=== PATIENT | female | born 1995 | race Caucasian/White ===

== ENCOUNTER 2017-12-17 00:23 | Observation (INO) ==
[2017-12-17 00:52] LABS: Bilirubin,Urine Negative (Negative); Blood,Urine Negative (Negative); Clarity,Urine Clear (Clear); Color,Urine Yellow (Yellow); Glucose,Urine (UA) Normal (Normal); Ketones,Urine Negative (Negative); Leukocyte Esterase,Urine Trace (Negative); Nitrite,Urine Negative (Negative); PH,Urine 6.5 pH Units (5.0-8.0); Protein,Urine Negative (Neg-Trace); Specific Gravity,Urine 1.015 (1.010-1.025); Urobilinogen,Urine Normal (Normal)
[2017-12-17 00:57] LABS: Bacteria,Urine None Seen per hpf (None-Few); Hyaline Casts,Urine None Seen per lpf (None-Few); Squamous Epithelial Cell,Urine Moderate per lpf (None-Few); WBC,Urine 0-3 per hpf (0-3)
[2017-12-17 00:59] LABS: Amphetamine Screen,Urine Negative ng/mL (Cutoff=1000); Barbiturate Screen,Urine Negative ng/mL (Cutoff=200); Benzodiazepines Screen,Urine Negative ng/mL (Cutoff=200); Cannabinoid Screen,Urine Negative ng/mL (Cutoff = 50); Cocaine Screen,Urine Negative ng/mL (Cutoff= 300); Opiate Screen,Urine Negative ng/mL (Cutoff=300); Phencyclidine Screen,Urine Negative ng/mL (Cutoff=25)
[2017-12-17 01:04] LABS: Basophils % 0.3 %; Eosinophils % 0.5 %; Hematocrit 36.5 % (35.3-44.9); Hemoglobin 12.8 g/dL (11.5-15.4); Immature Granulocytes % 0.2 % (0-4); Lymphocytes # 2.6 K/mcL (0.6-4.6); Lymphocytes % 28.8 %; Mean Corpuscular HGB Conc 35.1 g/dL (31.6-35.5); Mean Corpuscular Hemoglobin 30.2 pg (28.0-33.3); Mean Corpuscular Volume 86.1 fL (83.0-100.0); Monocytes # 0.6 K/mcL (0.0-1.3); Neutrophils # 5.6 K/mcL (1.6-8.9); Platelet Count 273 K/mcL (140-400); Red Blood Count 4.24 M/mcL (3.82-4.97); Red Cell Distribution Width 12.2 % (11.5-14.5); Segmented Neutrophils % 63.2 %
[2017-12-17 01:23] LABS: Acetaminophen < 10 mcg/mL (10-20); BUN/Creatinine Ratio 9 (6-26); Blood Urea Nitrogen 6 mg/dL (6-20); Calcium 9.3 mg/dL (8.6-10.3); Carbon Dioxide 25 mEq/L (23-29); Chloride 105 mEq/L (98-107); Ethanol < 10 mg/dL (Less than 10); Glucose 95 mg/dL (70-105); Osmolality,Calculated 281 (280-300); Potassium 3.3 mEq/L (3.5-5.1); Salicylate < 2.5 mg/dL (15.0-30.0); Sodium 137 mEq/L (136-145); eGFR For African Americans > 60 (> 60); eGFR For Non-African Americans > 60 (> 60)
--- NOTE | 2017-12-17 02:03 | Emergency Department Note ---
Disposition Clinical Impression: Suicidal ideation Disposition: Admitted As Inpatient Condition: Undetermined Psych HPI - General Chief Complaint: ED Psychiatric Symptoms Stated Complaint: si Time Seen by Provider: 12/17/17 00:55 Source: patient Mode of arrival: private vehicle Limitations: no limitations Nursing Notes Reviewed: Yes Vital Signs Reviewed: Yes - History of Present Illness HPI Narrative: 22-year-old female presents emergency Department with her parents for evaluation having suicidal ideations. Patient states he lately she has been having any thoughts to end her life. She is a history of cutting and has started thinking that she would like to cut to the point of suicide. Patient states she had a bad day aware And at that point she decided that she did not want to live any longer. She denies recent illness, fever, chills, genitourinary complaints, Estratest all planes, difficulty breathing, chest pain. Pt complaint: suicidal ideation Onset (ago): hour(s) Duration: intermittent History of similar episodes: Yes Alleged intoxication: No Associated Psychiatric Symptoms: depression Associated symptoms: Reports: denies other symptoms Traumatic symptoms: denies traumatic injury Treatments prior to arrival: none Self harm or harm to others: admits thoughts of self harm, has plan - Related Data Home Medications Medication Instructions Recorded Confirmed Aripiprazole [Abilify] 15 mg PO DAILY 01/14/17 01/14/17 Norgestimate-Ethinyl Estradiol 1 tab PO DAILY 01/14/17 01/14/17 [Sprintec 28 Day Tablet] Sertraline [Zoloft] 200 mg PO DAILY 01/14/17 01/14/17 lamoTRIgine [Lamotrigine] 200 mg PO DAILY 01/14/17 01/14/17 Previous Rx's Medication Instructions Recorded Ibuprofen [Motrin] 600 mg PO Q6HR PRN #60 tab 01/14/17 Oxycodone HCl/Acetaminophen 1 each PO Q4-6H PRN #30 tablet 01/14/17 [Percocet 5-325 mg Tablet] Allergies Allergy/AdvReac Type Severity Reaction Status Date / Time No Known Allergies Allergy Verified 01/14/17 11:31 All systems ED: reviewed and negative except as stated. Review of Systems: As Per HPI Past Medical History - Past Medical History Attestation: Yes The following information was validated with the patient. Source: patient Medical history: Reports: non-contributory, other Psychiatric history: Reports: anxiety, depression - Social History Smoking Status: Never smoker Smokeless Tobacco Status: No Alcohol use: Reports: rarely Drug use: Reports: none Physical Exam - General Limitations: no limitations General appearance: alert, in no apparent distress - Head Head exam: atraumatic, normocephalic, normal inspection - Eye Eye exam: Present: normal appearance - Neck Neck exam: Present: normal inspection, full ROM, trachea midline - Chest Chest inspection: Present: normal inspection, symmetric chest wall rise - Respiratory Respiratory exam: Present: normal lung sounds bilaterally - Cardiovascular Cardiovascular exam: Present: regular rate, normal rhythm, normal heart sounds - Abdominal Exam Abdominal exam: Present: soft, Non-Tender. Absent: tenderness, distention, guarding, rebound, rigidity - Expanded Lower Extremity Exam Gait: observed and normal - Neurological Exam Neurological exam: Present: alert, oriented X3, CN II-XII intact - Psychiatric Psychiatric exam: Present: normal affect, normal mood - Skin Skin exam: Present: warm, dry, intact, normal color Course Course Narrative: 22-year-old female distress. Physical exam is benign. We will workup for psychological evaluation. All labs and UA have returned normal. Inpatient psychiatry has seen patient and deemed that she needs to be admitted for medicine management at this time. Per medical standpoint she is cleared and able to go to inpatient psychiatric Vital Signs Temperature 97.9 F 12/17/17 00:30 Pulse Rate 106 12/17/17 00:30 Respiratory Rate 16 12/17/17 00:30 Blood Pressure 131/75 12/17/17 00:30 O2 Sat by Pulse Oximetry 98 12/17/17 00:30 Temperature 97.9 F 12/17/17 00:30 Pulse Rate 106 12/17/17 00:30 Respiratory Rate 16 12/17/17 00:30 Blood Pressure 131/75 12/17/17 00:30 O2 Sat by Pulse Oximetry 98 12/17/17 00:30 Oxygen Delivery Oxygen Delivery Room Air Psych - Differential Diagnosis Likely: acute psychosis, chronic psychiatric disease, suicidal ideation, depression, acute anxiety state, panic disorder, associated medical condition. Unlikely: bipolar disorder, drug-induced psychotic disorder, hyperventilation - Medical Records Medical records reviewed: Yes I reviewed the patient's medical records. - Lab Data Lab results reviewed: Yes I reviewed the patient's lab results. Result diagrams: 12/17/17 00:53 12/17/17 00:53 Lab Results 12/17/17 12/17/17 12/17/17 Range/Units 00:38 00:38 00:38 WBC (4.3-11.1) K/mcL RBC (3.82-4.97) M/mcL Hgb (11.5-15.4) g/dL Hct (35.3-44.9) % MCV (83.0-100.0) fL MCH (28.0-33.3) pg MCHC (31.6-35.5) g/dL RDW (11.5-14.5) % Plt Count (140-400) K/mcL MPV (9.4-12.4) fL Immature Gran % (0-4) % Seg Neutrophils % % Lymphocytes % % Monocytes % % Eosinophils % % Basophils % % Neutrophils # (1.6-8.9) K/mcL Lymphocytes # (0.6-4.6) K/mcL Monocytes # (0.0-1.3) K/mcL Eosinophils # (0.0-0.6) K/mcL Basophils # (0.0-0.2) K/mcL Sodium (136-145) mEq/L Potassium (3.5-5.1) mEq/L Chloride (98-107) mEq/L Carbon Dioxide (23-29) mEq/L BUN (6-20) mg/dL Creatinine (0.60-1.20) mg/dL Est GFR ( Amer) (> 60) Est GFR (Non-Af Amer) (> 60) BUN/Creatinine Ratio (6-26) Glucose (70-105) mg/dL Calculated Osmolality (280-300) Calcium (8.6-10.3) mg/dL Urine Color Yellow (Yellow) Urine Clarity Clear (Clear) Urine pH 6.5 (5.0-8.0) pH Units Ur Specific [place] 1.015 (1.010-1.025) Urine Protein Negative (Neg-Trace) mg/dL Urine Glucose (UA) Normal (Normal) mg/dL Urine Ketones Negative (Negative) mg/dL Urine Blood Negative (Negative) Urine Nitrite Negative (Negative) Urine Bilirubin Negative (Negative) Urine Urobilinogen Normal (Normal) mg/dL Ur Leukocyte Esterase Trace H (Negative) Urine Microscopic RBC 3-5 H (0-3) per hpf Urine Microscopic WBC 0-3 (0-3) per hpf Ur Squamous Epith Cells Moderate H (None-Few) per lpf Urine Bacteria None Seen (None-Few) per hpf Hyaline Casts None Seen (None-Few) per lpf Urine Test Negative (Negative) Salicylates (15.0-30.0) mg/dL Urine Opiates Screen Negative (Qlkxvl=999) ng/mL Acetaminophen (10-20) mcg/mL Ur Barbiturates Screen Negative (Jczfba=598) ng/mL Ur Phencyclidine Scrn Negative (Cutoff=25) ng/mL Ur Amphetamines Screen Negative (Gjcajb=3741) ng/mL U Benzodiazepines Scrn Negative (Jbauwg=326) ng/mL Urine Cocaine Screen Negative (Cutoff= 300) ng/mL U Marijuana (THC) Screen Negative (Cutoff = 50) ng/mL Ethyl Alcohol (Less than 10) mg/dL 12/17/17 12/17/17 Range/Units 00:53 00:53 WBC 8.9 (4.3-11.1) K/mcL RBC 4.24 (3.82-4.97) M/mcL Hgb 12.8 (11.5-15.4) g/dL Hct 36.5 (35.3-44.9) % MCV 86.1 (83.0-100.0) fL MCH 30.2 (28.0-33.3) pg MCHC 35.1 (31.6-35.5) g/dL RDW 12.2 (11.5-14.5) % Plt Count 273 (140-400) K/mcL MPV 10.0 (9.4-12.4) fL Immature Gran % 0.2 (0-4) % Seg Neutrophils % 63.2 % Lymphocytes % 28.8 % Monocytes % 7.0 % Eosinophils % 0.5 % Basophils % 0.3 % Neutrophils # 5.6 (1.6-8.9) K/mcL Lymphocytes # 2.6 (0.6-4.6) K/mcL Monocytes # 0.6 (0.0-1.3) K/mcL Eosinophils # 0.0 (0.0-0.6) K/mcL Basophils # 0.0 (0.0-0.2) K/mcL Sodium 137 (136-145) mEq/L Potassium 3.3 L (3.5-5.1) mEq/L Chloride 105 (98-107) mEq/L Carbon Dioxide 25 (23-29) mEq/L BUN 6 (6-20) mg/dL Creatinine 0.69 (0.60-1.20) mg/dL Est GFR ( Amer) > 60 (> 60) Est GFR (Non-Af Amer) > 60 (> 60) BUN/Creatinine Ratio 9 (6-26) Glucose 95 (70-105) mg/dL Calculated Osmolality 281 (280-300) Calcium 9.3 (8.6-10.3) mg/dL Urine Color (Yellow) Urine Clarity (Clear) Urine pH (5.0-8.0) pH Units Ur Specific [place] (1.010-1.025) Urine Protein (Neg-Trace) mg/dL Urine Glucose (UA) (Normal) mg/dL Urine Ketones (Negative) mg/dL Urine Blood (Negative) Urine Nitrite (Negative) Urine Bilirubin (Negative) Urine Urobilinogen (Normal) mg/dL Ur Leukocyte Esterase (Negative) Urine Microscopic RBC (0-3) per hpf Urine Microscopic WBC (0-3) per hpf Ur Squamous Epith Cells (None-Few) per lpf Urine Bacteria (None-Few) per hpf Hyaline Casts (None-Few) per lpf Urine Test (Negative) Salicylates < 2.5 L (15.0-30.0) mg/dL Urine Opiates Screen (Qucngx=805) ng/mL Acetaminophen < 10 L (10-20) mcg/mL Ur Barbiturates Screen (Sstauj=330) ng/mL Ur Phencyclidine Scrn (Cutoff=25) ng/mL Ur Amphetamines Screen (Fxtswo=7130) ng/mL U Benzodiazepines Scrn (Rvpqij=796) ng/mL Urine Cocaine Screen (Cutoff= 300) ng/mL U Marijuana (THC) Screen (Cutoff = 50) ng/mL Ethyl Alcohol < 10 (Less than 10) mg/dL Psychiatric Medical Clearance - Medical Clearance Checklist Does the patient have a NEW psychiatric condition?: No Any abnormalities indicating possible medical illness?: No Any history of medical issues?: No Medical History: No Social History Section defined Any abnormal vital signs prior to transfer?: No Current Vitals: Last Vital Signs Temp 97.9 F 12/17/17 00:30 Pulse 106 05/24/18 00:30 Resp 16 12/17/17 00:30 BP 131/75 12/17/17 00:30 Pulse Ox 98 12/17/17 00:30 Is the patient intoxicated or cognitively impaired?: No Psychiatric Lab Panel: Drug Levels and Toxicity 12/17/17 12/17/17 00:38 00:53 Urine Opiates Screen Negative Acetaminophen < 10 L Ur Barbiturates Screen Negative Ur Phencyclidine Scrn Negative Ur Amphetamines Screen Negative U Benzodiazepines Scrn Negative Urine Cocaine Screen Negative U Marijuana (THC) Screen Negative Ethyl Alcohol < 10 Any abnormalities on the physical exam?: No Any abnormal labs?: No Abnormal Labs: Abnormal lab results Potassium 3.3 mEq/L (3.5-5.1) L 12/17/17 00:53 Ur Leukocyte Esterase Trace (Negative) H 12/17/17 00:38 Urine Microscopic RBC 3-5 per hpf (0-3) H 12/17/17 00:38 Ur Squamous Epith Cells Moderate per lpf (None-Few) H 12/17/17 00:38 Salicylates < 2.5 mg/dL (15.0-30.0) L 12/17/17 00:53 Acetaminophen < 10 mcg/mL (10-20) L 12/17/17 00:53 Does the patient require durable medical equiptment?: No Is the patient ambulatory?: Yes Is the patient a fall risk?: No Has the patient been medically cleared?: Yes Any acute medical condition require Tx prior to transfer?: No Statement of Medical Clearance: I have evaluated the patient, reviewed diagnostic information, and certify that the patient's medical condition is sufficiently stable that transfer to the psychiatric unit does not pose a significant risk of deterioration.
[2017-12-17] MEDS ORDERED: Acetaminophen 325 MG TABLET PO PRN (03:26)
[2017-12-17] MEDS ORDERED: *HR* LORazepam 2 MG/ML VIAL IM PRN (03:27)
[2017-12-17] MEDS ORDERED: *HR* LORazepam 1 MG TABLET PO PRN (03:28)
[2017-12-17] MEDS ORDERED: Haloperidol Lactate 5 MG/ML VIAL IM PRN (03:32)
[2017-12-17] MEDS ORDERED: MOM Conc 10 ML UD.LIQ PO PRN (03:50)
[2017-12-17] MEDS ORDERED: Mag Hydrox/Al Hydrox/Simeth 30 ML UDC PO PRN (03:52)
[2017-12-17] MEDS ORDERED: hydrOXYzine pamoate 25 MG CAPSULE PO PRN (03:59)
[2017-12-17] MEDS ORDERED: traZODone 50 MG TABLET PO PRN (04:02)
[2017-12-17] MEDS ORDERED: ARIPiprazole 10 MG TABLET PO SCH (09:00)
[2017-12-17 10:02] VITALS: BP 126/87
--- NOTE | 2017-12-17 12:09 | Discharge Summary ---
Date of Encounter: 12/17/17 Time of Encounter: 12:00 History of Present Illness Chief complaint: I was suicidal, boxcutters Admitted From: Home History of Present Illness: Ms. Paez is a 22 year old female The patient was minutes through the ER. She is a 22-year-old single white female. Chief complaint: I had a rough day at the job, I plan to cut myself with box cutters and bleed to . History of present illness:. The patient was able to complete some initial job training. 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 She began to have thoughts of cutting herself and bleeding to . The patient has a history of cutting but did not cut herself because the box cutters may have been contaminated. The patient returned home. The patient told her parents about the suicidal plans. The patient's parents brought her to the emergency room. She agreed to stay for observation. She reports no plan to kill herself now. She reports no plan to kill herself in the foreseeable future. The patient is currently followed at [facility]. She sees Zena Devi certified nurse practitioner. She sees a counselor named Amanda Buenrostro. The patient has been on Paxil and Abilify. They have treated her for bipolar disorder and social anxiety disorder. The patient is being treated with Abilify and Paxil. She is tolerating these medicines but is low on Paxil. The patient reports social anxiety problems she does not like speaking in public she does not like eating in public she does not like using public laboratories. She does not like being alone in the mall. The patient has previously had increased anxiety and quit jobs after 1 day. 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 Past medical history: Laparoscopic removal of ovarian cyst Illnesses: None Allergies NKDA For control she is using an IUD called Kylena Family history: The patient's mother has depression and anxiety. The patient's father has bipolar disorder and PTSD. The patient's father may have had a problem with alcohol. Her younger brother as problem with anger issues and older brother has a drug problem. There is no family history of suicide. Visual history. She has attended some college. She attended [employer] her niece she failed and dropped out. She resides in a double wide trailer. There are 8 people that live in the house. She does not drink alcohol other than socially. She does not abuse drugs. She does not smoke. In the residence are guns knives and a jigsaw. Review of systems is significant for wearing glasses the ovarian cyst for possible endometriosis. Past Med Surg Social Fam HX - Past Medical History Source: patient Medical history: non-contributory, other - Past Psychiatric History Psychiatric history: Reports: anxiety, bipolar Family psychiatric history: Yes Family History of Suicide: None - Past Surgical History Surgical History: other - Social History Smoking Status: Never smoker Smokeless Tobacco Status: No Alcohol use: rarely Drug use: none Occupational status: previously employed Current living situation: Home - Independent Activity Level: Independent ambulation Recent Out of Country Travel Within the Last 8 Weeks: No Exposure or Possible Exposure to Illness During Travel: No Medications - Discharge Medications Prescriptions: PARoxetine HCl [Paroxetine HCl] 40 mg PO DAILY 30 Days #30 tablet Aripiprazole [Abilify] 20 mg PO DAILY 12/17/17 [History] PARoxetine HCl [Paroxetine HCl] 40 mg PO DAILY 30 Days #30 tablet 12/17/17 [Rx] 3 Allergy/AdvReac Type Severity Reaction Status Date / Time No Known Allergies Allergy Verified 01/14/17 11:31 Review of Systems Constitutional: Denies: fever, chills, weakness, weight change Eyes: Reports: other. Denies: eye pain, vision change Ears, Nose, Throat: Denies: ear pain, throat pain, dental pain, hearing loss, congestion Cardiovascular: Denies: chest pain, palpitations, dyspnea on exertion Respiratory: Denies: cough, dyspnea, wheezes Gastrointestinal: Denies: abdominal pain, nausea, vomiting, diarrhea, constipation Genitourinary female: Denies: urgency, dysuria, frequency, abnormal menses, dyspareunia Musculoskeletal: Denies: joint swelling, joint pain Integumentary: Denies: rash, lesions, pruritus Neurological: Denies: headache, weakness, numbness, memory loss Psychiatric: Reports: anxiety Endocrine: Denies: fatigue, heat or cold intolerance Hematologic/Lymphatic: Denies: easy bruising, lymphadenopathy Allergic/Immunologic: Denies: urticaria, itchy eyes Exam - HEENT Head exam IM: Present: atraumatic Eye exam IM: Present: EOMI, normal appearance, PERRL ENT exam IM: Present: normal exam - Neurological Neurological exam: Present: CN II-XII intact - GI/Abdominal GI/Abdominal exam IM: Absent: tenderness - Extremities Extremities exam IM: Present: full ROM - Skin Skin exam IM: Present: dry, warm - Constitutional Vitals: Temp Pulse Resp BP Pulse Ox 98.5 F 94 20 126/87 98 12/17/17 09:00 12/17/17 09:00 12/17/17 09:00 12/17/17 09:00 12/17/17 00:30 General appearance: age & developmentally appropriate, well-groomed, well- nourished - Musculoskeletal Gait: normal Station: relaxed Strength & Tone: normal for patient - Psychiatric Patient Orientation: Yes Person, Yes Time, Yes Place Level of alertness: Alert Behavior: calm, cooperative Psychomotor activity: Normal Eye Contact: Maintains Eye Contact Mood Description: Anxious Affect description: congruent with mood, full range, anxious Speech Volume: Normal Speech pattern: normal rate, normal rhythm, normal tone, fluent, spontaneous Language & Vocabulary: consistent with education Thought Process: Linear, Goal Oriented Thought Content: No Suicidal ideation, No Homicidal ideation, No Overt delusions Perceptual Disturbances: No Auditory hallucinations, No Visual hallucinations Attention Span Ability: Capable of Focused Attention Memory Description: Grossly Intact Patient Reliability: Reliable Historian Fund of knowledge: Yes abstraction ability, Yes average, Yes aware of current events Intelligence Estimate: Average Judgment: Fair Insight: Partial Results - Labs Labs: Laboratory Last Values WBC 8.9 K/mcL (4.3-11.1) 12/17/17 00:53 RBC 4.24 M/mcL (3.82-4.97) 12/17/17 00:53 Hgb 12.8 g/dL (11.5-15.4) 12/17/17 00:53 Hct 36.5 % (35.3-44.9) 12/17/17 00:53 MCV 86.1 fL (83.0-100.0) 12/17/17 00:53 MCH 30.2 pg (28.0-33.3) 12/17/17 00:53 MCHC 35.1 g/dL (31.6-35.5) 12/17/17 00:53 RDW 12.2 % (11.5-14.5) 12/17/17 00:53 Plt Count 273 K/mcL (140-400) 12/17/17 00:53 MPV 10.0 fL (9.4-12.4) 12/17/17 00:53 Immature Gran % 0.2 % (0-4) 12/17/17 00:53 Seg Neutrophils % 63.2 % 12/17/17 00:53 Lymphocytes % 28.8 % 12/17/17 00:53 Monocytes % 7.0 % 12/17/17 00:53 Eosinophils % 0.5 % 12/17/17 00:53 Basophils % 0.3 % 12/17/17 00:53 Neutrophils # 5.6 K/mcL (1.6-8.9) 12/17/17 00:53 Lymphocytes # 2.6 K/mcL (0.6-4.6) 12/17/17 00:53 Monocytes # 0.6 K/mcL (0.0-1.3) 12/17/17 00:53 Eosinophils # 0.0 K/mcL (0.0-0.6) 12/17/17 00:53 Basophils # 0.0 K/mcL (0.0-0.2) 12/17/17 00:53 Sodium 137 mEq/L (136-145) 12/17/17 00:53 Potassium 3.3 mEq/L (3.5-5.1) L 12/17/17 00:53 Chloride 105 mEq/L (98-107) 12/17/17 00:53 Carbon Dioxide 25 mEq/L (23-29) 12/17/17 00:53 BUN 6 mg/dL (6-20) 12/17/17 00:53 Creatinine 0.69 mg/dL (0.60-1.20) 12/17/17 00:53 Est GFR ( Amer) > 60 (> 60) 12/17/17 00:53 Est GFR (Non-Af Amer) > 60 (> 60) 12/17/17 00:53 BUN/Creatinine Ratio 9 (6-26) 12/17/17 00:53 Glucose 95 mg/dL (70-105) 12/17/17 00:53 Calculated Osmolality 281 (280-300) 12/17/17 00:53 Calcium 9.3 mg/dL (8.6-10.3) 12/17/17 00:53 Urine Color Yellow (Yellow) 12/17/17 00:38 Urine Clarity Clear (Clear) 12/17/17 00:38 Urine pH 6.5 pH Units (5.0-8.0) 12/17/17 00:38 Ur Specific [place] 1.015 (1.010-1.025) 12/17/17 00:38 Urine Protein Negative mg/dL (Neg-Trace) 12/17/17 00:38 Urine Glucose (UA) Normal mg/dL (Normal) 12/17/17 00:38 Urine Ketones Negative mg/dL (Negative) 12/17/17 00:38 Urine Blood Negative (Negative) 12/17/17 00: Urine Nitrite Negative (Negative) 12/17/17 00:38 Urine Bilirubin Negative (Negative) 12/17/17 00:38 Urine Urobilinogen Normal mg/dL (Normal) 12/17/17 00:38 Ur Leukocyte Esterase Trace (Negative) H 12/17/17 00:38 Urine Microscopic RBC 3-5 per hpf (0-3) H 12/17/17 00:38 Urine Microscopic WBC 0-3 per hpf (0-3) 12/17/17 00:38 Ur Squamous Epith Cells Moderate per lpf (None-Few) H 12/17/17 00:38 Urine Bacteria None Seen per hpf (None-Few) 12/17/17 00:38 Hyaline Casts None Seen per lpf (None-Few) 12/17/17 00:38 Urine Test Negative (Negative) 12/17/17 00:38 Salicylates < 2.5 mg/dL (15.0-30.0) L 12/17/17 00:53 Urine Opiates Screen Negative ng/mL (Kpfbuc=822) 12/17/17 00:38 Acetaminophen < 10 mcg/mL (10-20) L 12/17/17 00:53 Ur Barbiturates Screen Negative ng/mL (Wkznhj=323) 12/17/17 00:38 Ur Phencyclidine Scrn Negative ng/mL (Cutoff=25) 12/17/17 00:38 Ur Amphetamines Screen Negative ng/mL (Uttryo=6206) 12/17/17 00: U Benzodiazepines Scrn Negative ng/mL (Uevwpe=677) 12/17/17 00:38 Urine Cocaine Screen Negative ng/mL (Cutoff= 300) 12/17/17 00:38 U Marijuana (THC) Screen Negative ng/mL (Cutoff = 50) 12/17/17 00:38 Ethyl Alcohol < 10 mg/dL (Less than 10) 12/17/17 00:53 Diagnosis - Discharge Diagnosis (1) Bipolar disorder, current episode depressed, mild Status: Acute (2) Social anxiety disorder Status: Acute (3) Suicidal ideation Status: Resolved Assessment and Plan - Patient/Caregiver Discharge Instructions Activity: resume usual activities as tolerated Diet: regular diet - Follow up Plan Follow up with: [facility] [Outside] - 12/22/17 11:00 am (The above appointment is with Amanda for outpatient mental health counseling services. You will also see Zena Devi for outpatient psychiatric assessment and medication management services on 12/23/2017 at 9:30am.) Functional capacity at discharge: independent ambulation Overall status at discharge: Stable Disposition: Home, Self-Care Provider Date of admission: 12/17/17 03:16 Primary care physician: PCP NONE Hospital Course Hospital course: Ms. Paez is a 22 year old female - Time Spent with Patient Total time spent providing and/or coordinating discharge services: Quality - Multiple Antipsychotics Patient discharged on 2 or more antipsychotic medications: No
== END 2017-12-17 17:25 | disposition home or self-care (01) ==
LOC: EMEROO 00:23 → 1ANU 00:23
PROVIDERS: ADMIT Psychiatry & Neurology Forensic Psychiatry; ATTEND Psychiatry & Neurology Forensic Psychiatry

== ENCOUNTER 2018-04-28 23:34 | Inpatient (IN) ==
--- NOTE | 2018-04-29 00:28 | Emergency Department Note ---
Disposition Clinical Impression: Suicidal ideation, Medical clearance for psychiatric admission Disposition: Admitted As Inpatient Condition: Undetermined Time of Disposition: 02:06 Psych HPI - General Chief Complaint: ED Psychiatric Symptoms Stated Complaint: suicidal Time Seen by Provider: 04/28/18 23:37 Source: patient, family Mode of arrival: ambulatory Limitations: no limitations Nursing Notes Reviewed: Yes Vital Signs Reviewed: Yes - History of Present Illness HPI Narrative: 22-year-old female with history of previous suicidal ideations, attempts, previous psychiatric admissions here at [facility] arrives to the emergency department after experiencing suicidal ideation with an attempt today. The patient states she was cutting her left upper extremity. The patient states she has a plan to cut her left upper extremity to deep and bleed out. The patient states that this is similar to previous suicidal ideation. She denies any other complaints at this time. She is resting comfortably in the room. The patient does have a mildly flat affect on examination. She denies any chest pain, difficulty breathing, fevers, chills. She denies any alcohol or drug use. - Related Data Home Medications Medication Instructions Recorded Confirmed Aripiprazole [Abilify] 20 mg PO DAILY 12/17/17 12/17/17 Propranolol 02/17/18 Previous Rx's Medication Instructions Recorded PARoxetine HCl [Paroxetine HCl] 40 mg PO DAILY 30 Days #30 tablet 12/17/17 Mupirocin [Bactroban Oint] 1 appl TP BID #1 tube 02/17/18 Sulfamethoxazole/Trimeth DS 1 each PO BID #20 tablet 02/17/18 [Bactrim DS] Allergies Allergy/AdvReac Type Severity Reaction Status Date / Time No Known Allergies Allergy Verified 01/14/17 11:31 All systems ED: reviewed and negative except as stated. Constitutional: Denies: fever, chills, weakness Cardiovascular: Denies: chest pain Respiratory: Denies: dyspnea Gastrointestinal: Denies: abdominal pain Genitourinary: Denies: urgency, dysuria Musculoskeletal: Denies: back pain Integumentary: Reports: abrasion. Denies: rash Neurological: Denies: headache Psychiatric: Reports: depression, suicidal thoughts. Denies: homicidal thoughts Past Medical History - Past Medical History Attestation: Yes The following information was validated with the patient. Source: patient, old records reviewed Medical history: Reports: non-contributory, other Surgical history: Reports: other Psychiatric history: Reports: anxiety, bipolar, depression, prior suicide attempt, previous psychiatric hospitalization - Social History Smoking Status: Never smoker Smokeless Tobacco Status: No Alcohol use: Reports: none Drug use: Reports: none Physical Exam - General Limitations: no limitations General appearance: alert, in no apparent distress - Head Head exam: atraumatic, normocephalic, normal inspection - Eye Eye exam: Present: normal appearance, PERRL, EOMI - ENT ENT exam: normal exam, normal oropharynx, mucous membranes moist - Neck Neck exam: Present: normal inspection, full ROM, trachea midline - Chest Chest inspection: Present: normal inspection, symmetric chest wall rise - Respiratory Respiratory exam: Present: normal lung sounds bilaterally - Cardiovascular Cardiovascular exam: Present: regular rate, normal rhythm, normal heart sounds - Abdominal Exam Abdominal exam: Present: soft, Non-Tender. Absent: tenderness, distention, guarding, rebound, rigidity - Extremities Exam Extremities exam: Present: normal inspection, full ROM. Absent: tenderness, pedal edema - Neurological Exam Neurological exam: Present: alert, oriented X3 - Skin Skin exam: Present: warm, dry, normal color, other (Patient has large amount of superficial lacerations to left wrist and forearm consistent with patient's self cutting. No signs of infection. No active bleeding. No need for repair of wounds.) Course - Reevaluation(s) Reevaluation #1: Patient medically clear. Patient will be seen by 1A. Time: 01:11 Vital Signs Temperature 98.6 F 04/28/18 23:37 Pulse Rate 98 04/28/18 23:37 Respiratory Rate 12 04/28/18 23:37 Blood Pressure 116/76 04/28/18 23:37 O2 Sat by Pulse Oximetry 98 04/28/18 23:37 Temperature 98.6 F 04/28/18 23:37 Pulse Rate 98 04/28/18 23:37 Respiratory Rate 12 04/28/18 23:37 Blood Pressure 116/76 04/28/18 23:37 O2 Sat by Pulse Oximetry 98 04/28/18 23:37 Oxygen Delivery Oxygen Delivery Room Air Psych - MDM Narrative Medical decision making narrative: Patient was medically clear. Given the patient's suicidal ideation. The patient will be admitted to [facility] for further workup and care. The patient has a pink slip at this time. Is signed and on the patient's chart. - Lab Data Result diagrams: 04/29/18 00:32 04/29/18 00:32 Lab Results 04/29/18 04/29/18 04/29/18 Range/Units 00:25 00:25 00:25 WBC (4.3-11.1) K/mcL RBC (3.82-4.97) M/mcL Hgb (11.5-15.4) g/dL Hct (35.3-44.9) % MCV (83.0-100.0) fL MCH (28.0-33.3) pg MCHC (31.6-35.5) g/dL RDW (11.5-14.5) % Plt Count (140-400) K/mcL MPV (9.4-12.4) fL Immature Gran % (0-4) % Seg Neutrophils % % Lymphocytes % % Monocytes % % Eosinophils % % Basophils % % Neutrophils # (1.6-8.9) K/mcL Lymphocytes # (0.6-4.6) K/mcL Monocytes # (0.0-1.3) K/mcL Eosinophils # (0.0-0.6) K/mcL Basophils # (0.0-0.2) K/mcL Sodium (136-145) mEq/L Potassium (3.5-5.1) mEq/L Chloride (98-107) mEq/L Carbon Dioxide (23-29) mEq/L BUN (6-20) mg/dL Creatinine (0.60-1.20) mg/dL Est GFR ( Amer) (> 60) Est GFR (Non-Af Amer) (> 60) BUN/Creatinine Ratio (6-26) Glucose (70-105) mg/dL Calculated Osmolality (280-300) Calcium (8.6-10.3) mg/dL Urine Color Yellow (Yellow) Urine Clarity Clear (Clear) Urine pH 5.5 (5.0-8.0) pH Units Ur Specific [place] 1.015 (1.010-1.025) Urine Protein Negative (Neg-Trace) mg/dL Urine Glucose (UA) Normal (Normal) mg/dL Urine Ketones Negative (Negative) mg/dL Urine Blood Negative (Negative) Urine Nitrite Negative (Negative) Urine Bilirubin Negative (Negative) Urine Urobilinogen Normal (Normal) mg/dL Ur Leukocyte Esterase Negative (Negative) Urine Test Negative (Negative) Salicylates (15.0-30.0) mg/dL Urine Opiates Screen Negative (Itzuhg=654) ng/mL Acetaminophen (10-20) mcg/mL Ur Barbiturates Screen Negative (Ruwfvr=673) ng/mL Ur Phencyclidine Scrn Negative (Cutoff=25) ng/mL Ur Amphetamines Screen Negative (Jrapkl=6517) ng/mL U Benzodiazepines Scrn Negative (Sbsibp=661) ng/mL Urine Cocaine Screen Negative (Cutoff= 300) ng/mL U Marijuana (THC) Screen Negative (Cutoff = 50) ng/mL Ur Drug Screen Interp See Below Ethyl Alcohol (Less than 10) mg/dL 04/29/18 04/29/18 Range/Units 00:32 00:32 WBC 8.4 (4.3-11.1) K/mcL RBC 4.25 (3.82-4.97) M/mcL Hgb 13.0 (11.5-15.4) g/dL Hct 38.0 (35.3-44.9) % MCV 89.4 (83.0-100.0) fL MCH 30.6 (28.0-33.3) pg MCHC 34.2 (31.6-35.5) g/dL RDW 12.0 (11.5-14.5) % Plt Count 301 (140-400) K/mcL MPV 10.7 (9.4-12.4) fL Immature Gran % 0.2 (0-4) % Seg Neutrophils % 65.3 % Lymphocytes % 27.2 % Monocytes % 5.7 % Eosinophils % 1.1 % Basophils % 0.5 % Neutrophils # 5.5 (1.6-8.9) K/mcL Lymphocytes # 2.3 (0.6-4.6) K/mcL Monocytes # 0.5 (0.0-1.3) K/mcL Eosinophils # 0.1 (0.0-0.6) K/mcL Basophils # 0.0 (0.0-0.2) K/mcL Sodium 139 (136-145) mEq/L Potassium 3.8 (3.5-5.1) mEq/L Chloride 109 H (98-107) mEq/L Carbon Dioxide 20 L (23-29) mEq/L BUN 6 (6-20) mg/dL Creatinine 0.68 (0.60-1.20) mg/dL Est GFR ( Amer) > 60 (> 60) Est GFR (Non-Af Amer) > 60 (> 60) BUN/Creatinine Ratio 9 (6-26) Glucose 100 (70-105) mg/dL Calculated Osmolality 286 (280-300) Calcium 9.1 (8.6-10.3) mg/dL Urine Color (Yellow) Urine Clarity (Clear) Urine pH (5.0-8.0) pH Units Ur Specific [place] (1.010-1.025) Urine Protein (Neg-Trace) mg/dL Urine Glucose (UA) (Normal) mg/dL Urine Ketones (Negative) mg/dL Urine Blood (Negative) Urine Nitrite (Negative) Urine Bilirubin (Negative) Urine Urobilinogen (Normal) mg/dL Ur Leukocyte Esterase (Negative) Urine Test (Negative) Salicylates < 2.5 L (15.0-30.0) mg/dL Urine Opiates Screen (Flqnei=241) ng/mL Acetaminophen < 10 L (10-20) mcg/mL Ur Barbiturates Screen (Ntumzm=240) ng/mL Ur Phencyclidine Scrn (Cutoff=25) ng/mL Ur Amphetamines Screen (Vdvcmh=7564) ng/mL U Benzodiazepines Scrn (Gnnivn=543) ng/mL Urine Cocaine Screen (Cutoff= 300) ng/mL U Marijuana (THC) Screen (Cutoff = 50) ng/mL Ur Drug Screen Interp Ethyl Alcohol < 10 (Less than 10) mg/dL Psychiatric Medical Clearance - Medical Clearance Checklist Medical History: No Social History Section defined Current Vitals: Last Vital Signs Temp 98.6 F 04/28/18 23:37 Pulse 98 04/28/18 23:37 Resp 12 04/28/18 23:37 BP 116/76 04/28/18 23:37 Pulse Ox 98 04/28/18 23:37 Psychiatric Lab Panel: Drug Levels and Toxicity 04/29/18 04/29/18 00:25 00:32 Urine Opiates Screen Negative Acetaminophen < 10 L Ur Barbiturates Screen Negative Ur Phencyclidine Scrn Negative Ur Amphetamines Screen Negative U Benzodiazepines Scrn Negative Urine Cocaine Screen Negative U Marijuana (THC) Screen Negative Ethyl Alcohol < 10 Abnormal Labs: Abnormal lab results Chloride 109 mEq/L (98-107) H 04/29/18 00:32 Carbon Dioxide 20 mEq/L (23-29) L 04/29/18 00:32 Salicylates < 2.5 mg/dL (15.0-30.0) L 04/29/18 00:32 Acetaminophen < 10 mcg/mL (10-20) L 04/29/18 00:32
[2018-04-29] MEDS ORDERED: Tdap (Boostrix) Vaccine 0.5 ML SYRINGE IM ONE (00:30)
[2018-04-29 00:42] LABS: Basophils % 0.5 %; Eosinophils # 0.1 K/mcL (0.0-0.6); Eosinophils % 1.1 %; Immature Granulocytes % 0.2 % (0-4); Lymphocytes # 2.3 K/mcL (0.6-4.6); Lymphocytes % 27.2 %; Mean Corpuscular HGB Conc 34.2 g/dL (31.6-35.5); Mean Corpuscular Hemoglobin 30.6 pg (28.0-33.3); Mean Corpuscular Volume 89.4 fL (83.0-100.0); Mean Platelet Volume 10.7 fL (9.4-12.4); Monocytes # 0.5 K/mcL (0.0-1.3); Monocytes % 5.7 %; Neutrophils # 5.5 K/mcL (1.6-8.9); Platelet Count 301 K/mcL (140-400); Red Blood Count 4.25 M/mcL (3.82-4.97); Segmented Neutrophils % 65.3 %
[2018-04-29 00:43] LABS: Bilirubin,Urine Negative (Negative); Blood,Urine Negative (Negative); Clarity,Urine Clear (Clear); Color,Urine Yellow (Yellow); Glucose,Urine (UA) Normal (Normal); Ketones,Urine Negative (Negative); Leukocyte Esterase,Urine Negative (Negative); Nitrite,Urine Negative (Negative); PH,Urine 5.5 pH Units (5.0-8.0); Protein,Urine Negative (Neg-Trace); Specific Gravity,Urine 1.015 (1.010-1.025); Urobilinogen,Urine Normal (Normal)
[2018-04-29 00:52] LABS: Amphetamine Screen,Urine Negative ng/mL (Cutoff=1000); Barbiturate Screen,Urine Negative ng/mL (Cutoff=200); Benzodiazepines Screen,Urine Negative ng/mL (Cutoff=200); Cannabinoid Screen,Urine Negative ng/mL (Cutoff = 50); Cocaine Screen,Urine Negative ng/mL (Cutoff= 300); Opiate Screen,Urine Negative ng/mL (Cutoff=300); Phencyclidine Screen,Urine Negative ng/mL (Cutoff=25)
[2018-04-29 01:02] LABS: Acetaminophen < 10 mcg/mL (10-20); BUN/Creatinine Ratio 9 (6-26); Blood Urea Nitrogen 6 mg/dL (6-20); Calcium 9.1 mg/dL (8.6-10.3); Carbon Dioxide 20 mEq/L (23-29); Chloride 109 mEq/L (98-107); Ethanol < 10 mg/dL (Less than 10); Glucose 100 mg/dL (70-105); Osmolality,Calculated 286 (280-300); Potassium 3.8 mEq/L (3.5-5.1); Salicylate < 2.5 mg/dL (15.0-30.0); Sodium 139 mEq/L (136-145); eGFR For Non-African Americans > 60 (> 60)
--- NOTE | 2018-04-29 01:11 | Emergency Department Note ---
Disposition Clinical Impression: Suicidal ideation Disposition: Admitted As Inpatient Referrals: Joyce Mccall DO [Primary Care Provider] - Forms: ED Satisfaction Letter Time of Disposition: 02:07 General Adult HPI - General Chief complaint: ED Psychiatric Symptoms Stated complaint: suicidal Time Seen by Provider: 04/28/18 23:37 Source: patient, family Mode of arrival: ambulatory Limitations: no limitations - History of Present Illness Pain Scale: 3 - Related Data Home Medications Medication Instructions Recorded Confirmed Aripiprazole [Abilify] 20 mg PO DAILY 12/17/17 12/17/17 Propranolol 02/17/18 Previous Rx's Medication Instructions Recorded PARoxetine HCl [Paroxetine HCl] 40 mg PO DAILY 30 Days #30 tablet 12/17/17 Mupirocin [Bactroban Oint] 1 appl TP BID #1 tube 02/17/18 Sulfamethoxazole/Trimeth DS 1 each PO BID #20 tablet 02/17/18 [Bactrim DS] Allergies Allergy/AdvReac Type Severity Reaction Status Date / Time No Known Allergies Allergy Verified 01/14/17 11:31 Constitutional: Denies: fever, chills, weakness Cardiovascular: Denies: chest pain Respiratory: Denies: dyspnea Gastrointestinal: Denies: abdominal pain Genitourinary: Denies: urgency, dysuria Musculoskeletal: Denies: back pain Integumentary: Reports: abrasion. Denies: rash Neurological: Denies: headache Psychiatric: Reports: depression, suicidal thoughts. Denies: homicidal thoughts Past Medical History - Past Medical History Medical history: Reports: non-contributory, other Surgical history: Reports: other Psychiatric history: Reports: anxiety, bipolar, depression, prior suicide attempt, previous psychiatric hospitalization - Social History Smoking Status: Never smoker Smokeless Tobacco Status: No Alcohol use: Reports: none Drug use: Reports: none Physical Exam - General Limitations: no limitations General appearance: alert, in no apparent distress Course Vital Signs Temperature 98.6 F 04/28/18 23:37 Pulse Rate 98 04/28/18 23:37 Respiratory Rate 12 04/28/18 23:37 Blood Pressure 116/76 04/28/18 23:37 O2 Sat by Pulse Oximetry 98 04/28/18 23:37 Temperature 98.6 F 04/28/18 23:37 Pulse Rate 98 04/28/18 23:37 Respiratory Rate 12 04/28/18 23:37 Blood Pressure 116/76 04/28/18 23:37 O2 Sat by Pulse Oximetry 98 04/28/18 23:37 Oxygen Delivery Oxygen Delivery Room Air Medical Decision Making - Lab Data Result diagrams: 04/29/18 00:32 04/29/18 00:32 Lab Results 04/29/18 04/29/18 04/29/18 Range/Units 00:25 00:25 00:25 WBC (4.3-11.1) K/mcL RBC (3.82-4.97) M/mcL Hgb (11.5-15.4) g/dL Hct (35.3-44.9) % MCV (83.0-100.0) fL MCH (28.0-33.3) pg MCHC (31.6-35.5) g/dL RDW (11.5-14.5) % Plt Count (140-400) K/mcL MPV (9.4-12.4) fL Immature Gran % (0-4) % Seg Neutrophils % % Lymphocytes % % Monocytes % % Eosinophils % % Basophils % % Neutrophils # (1.6-8.9) K/mcL Lymphocytes # (0.6-4.6) K/mcL Monocytes # (0.0-1.3) K/mcL Eosinophils # (0.0-0.6) K/mcL Basophils # (0.0-0.2) K/mcL Sodium (136-145) mEq/L Potassium (3.5-5.1) mEq/L Chloride (98-107) mEq/L Carbon Dioxide (23-29) mEq/L BUN (6-20) mg/dL Creatinine (0.60-1.20) mg/dL Est GFR ( Amer) (> 60) Est GFR (Non-Af Amer) (> 60) BUN/Creatinine Ratio (6-26) Glucose (70-105) mg/dL Calculated Osmolality (280-300) Calcium (8.6-10.3) mg/dL Urine Color Yellow (Yellow) Urine Clarity Clear (Clear) Urine pH 5.5 (5.0-8.0) pH Units Ur Specific [place] 1.015 (1.010-1.025) Urine Protein Negative (Neg-Trace) mg/dL Urine Glucose (UA) Normal (Normal) mg/dL Urine Ketones Negative (Negative) mg/dL Urine Blood Negative (Negative) Urine Nitrite Negative (Negative) Urine Bilirubin Negative (Negative) Urine Urobilinogen Normal (Normal) mg/dL Ur Leukocyte Esterase Negative (Negative) Urine Test Negative (Negative) Salicylates (15.0-30.0) mg/dL Urine Opiates Screen Negative (Kjpxaf=431) ng/mL Acetaminophen (10-20) mcg/mL Ur Barbiturates Screen Negative (Qmebog=808) ng/mL Ur Phencyclidine Scrn Negative (Cutoff=25) ng/mL Ur Amphetamines Screen Negative (Mwjvep=2903) ng/mL U Benzodiazepines Scrn Negative (Ujoftu=595) ng/mL Urine Cocaine Screen Negative (Cutoff= 300) ng/mL U Marijuana (THC) Screen Negative (Cutoff = 50) ng/mL Ur Drug Screen Interp See Below Ethyl Alcohol (Less than 10) mg/dL 04/29/18 04/29/18 Range/Units 00:32 00:32 WBC 8.4 (4.3-11.1) K/mcL RBC 4.25 (3.82-4.97) M/mcL Hgb 13.0 (11.5-15.4) g/dL Hct 38.0 (35.3-44.9) % MCV 89.4 (83.0-100.0) fL MCH 30.6 (28.0-33.3) pg MCHC 34.2 (31.6-35.5) g/dL RDW 12.0 (11.5-14.5) % Plt Count 301 (140-400) K/mcL MPV 10.7 (9.4-12.4) fL Immature Gran % 0.2 (0-4) % Seg Neutrophils % 65.3 % Lymphocytes % 27.2 % Monocytes % 5.7 % Eosinophils % 1.1 % Basophils % 0.5 % Neutrophils # 5.5 (1.6-8.9) K/mcL Lymphocytes # 2.3 (0.6-4.6) K/mcL Monocytes # 0.5 (0.0-1.3) K/mcL Eosinophils # 0.1 (0.0-0.6) K/mcL Basophils # 0.0 (0.0-0.2) K/mcL Sodium 139 (136-145) mEq/L Potassium 3.8 (3.5-5.1) mEq/L Chloride 109 H (98-107) mEq/L Carbon Dioxide 20 L (23-29) mEq/L BUN 6 (6-20) mg/dL Creatinine 0.68 (0.60-1.20) mg/dL Est GFR ( Amer) > 60 (> 60) Est GFR (Non-Af Amer) > 60 (> 60) BUN/Creatinine Ratio 9 (6-26) Glucose 100 (70-105) mg/dL Calculated Osmolality 286 (280-300) Calcium 9.1 (8.6-10.3) mg/dL Urine Color (Yellow) Urine Clarity (Clear) Urine pH (5.0-8.0) pH Units Ur Specific [place] (1.010-1.025) Urine Protein (Neg-Trace) mg/dL Urine Glucose (UA) (Normal) mg/dL Urine Ketones (Negative) mg/dL Urine Blood (Negative) Urine Nitrite (Negative) Urine Bilirubin (Negative) Urine Urobilinogen (Normal) mg/dL Ur Leukocyte Esterase (Negative) Urine Test (Negative) Salicylates < 2.5 L (15.0-30.0) mg/dL Urine Opiates Screen (Tdaxft=702) ng/mL Acetaminophen < 10 L (10-20) mcg/mL Ur Barbiturates Screen (Xoskwh=260) ng/mL Ur Phencyclidine Scrn (Cutoff=25) ng/mL Ur Amphetamines Screen (Kurerq=5021) ng/mL U Benzodiazepines Scrn (Tkjppr=388) ng/mL Urine Cocaine Screen (Cutoff= 300) ng/mL U Marijuana (THC) Screen (Cutoff = 50) ng/mL Ur Drug Screen Interp Ethyl Alcohol < 10 (Less than 10) mg/dL Attestation Statement - Attestation Attestation: I examined this patient and my medical decision-making was reviewed with the Resident Physician. I agree with the documented findings, disposition and treatment plan as described except to the extent set forth below. Patient to the ED for suicidal thoughts and self-harm. Patient intentionally cut her wrists tonight. She denies taking any other drugs. She denies trying to harm himself in any other way. She denies alcohol consumption tonight. On examination she has multiple superficial cuts to the left forearm. Plan. Medical clearance. Boostrix. Wounds are superficial. We will have her evaluated by 1A. Patient medically cleared at 110. Patient admitted to [facility].
[2018-04-29] MEDS ORDERED: MOM Conc 10 ML UD.LIQ PO PRN (02:34)
[2018-04-29] MEDS ORDERED: Acetaminophen 325 MG TABLET PO PRN (02:34)
[2018-04-29] MEDS ORDERED: hydrOXYzine pamoate 25 MG CAPSULE PO PRN (02:34)
[2018-04-29] MEDS ORDERED: *HR* LORazepam 1 MG TABLET PO PRN (02:34)
[2018-04-29] MEDS ORDERED: Haloperidol Lactate 5 MG/ML VIAL IM PRN (02:34)
[2018-04-29] MEDS ORDERED: traZODone 50 MG TABLET PO PRN (02:34)
[2018-04-29] MEDS ORDERED: *HR* LORazepam 2 MG/ML VIAL IM PRN (02:34)
[2018-04-29] MEDS ORDERED: Mag Hydrox/Al Hydrox/Simeth 30 ML UDC PO PRN (02:34)
--- NOTE | 2018-04-29 10:23 | Discharge Summary ---
Date of Encounter: 04/29/18 Time of Encounter: 09:45 History of Present Illness Chief complaint: i cut my self Admitted From: Emergency Dept History of Present Illness: Ms. Paez is a 22 year old female evaluated today , came to ED as she superficially cut herself and came to ED as was scared would cut more, she has h /o bipolar /social anxiety and suicidal ideation , she after coming to ED denied any suicidal ideation states had lot of family stress, mother is sick and father also and worried about them , lives with her family . She is pleasant , cooperative , with make up , hair done and in [facility]. She has no substance use in more 3 months , she stopped smoking 1 month ago. She is complaint with her medication, states cut to relieve stress. she does not want to , she was stressed and wanted relieve. AT PRESENT NO PSYCHOSIS, NO MANIC EPISODE , DEPRESSION IS NOT TOO BAD , DENIES SI/HI. pAST : She has been in treatment since 12/09 and has been cutting self since then, she has only 1 psych hospitalization in 12/11 at . she follows at [facility] and has appointment tomorrow with psychiatrist and counselling. Substance USE none for 3 months. Family h/o depression and bipolar , no suicide in family. Medical superficial cuts on left arm , none other. A/P bipolar depress mild no suicidal ideation at present . was admitted for observation. will dc patient has follow up tomorrow and her family is supportive. Past Med Surg Social Fam HX - Past Medical History Medical history: non-contributory, other - Past Psychiatric History Psychiatric history: Reports: bipolar, depression, previous psychiatric hospitalization Family psychiatric history: Yes Family History of Suicide: None - Past Surgical History Surgical History: other - Social History Smoking Status: Never smoker Smokeless Tobacco Status: No Alcohol use: none Drug use: none - Family History Mother Hx Family Endocrine Disorder: Yes (DM) Medications - Discharge Medications PARoxetine HCl [Paroxetine HCl] 40 mg PO DAILY 30 Days #30 tablet 12/17/17 [Rx] Aripiprazole [Abilify] 30 mg PO DAILY 04/29/18 [History] FLUoxetine HCl [Prozac] 10 mg PO DAILY 04/29/18 [History] Propranolol [Inderal] 10 mg PO TID 04/29/18 [History] 3 Allergy/AdvReac Type Severity Reaction Status Date / Time No Known Allergies Allergy Verified 01/14/17 11:31 Review of Systems Constitutional: Denies: fever, chills, weakness, weight change Eyes: Denies: eye pain, vision change Ears, Nose, Throat: Denies: ear pain, throat pain, dental pain, hearing loss, congestion Cardiovascular: Denies: chest pain, palpitations, dyspnea on exertion Respiratory: Denies: cough, dyspnea, wheezes Gastrointestinal: Denies: abdominal pain, nausea, vomiting, diarrhea, constipation Genitourinary female: Denies: urgency, dysuria, frequency, abnormal menses, dyspareunia Musculoskeletal: Denies: joint swelling, joint pain Integumentary: Denies: rash, lesions, pruritus Neurological: Denies: headache, weakness, numbness, memory loss Psychiatric: Reports: depression Endocrine: Denies: fatigue, heat or cold intolerance Hematologic/Lymphatic: Denies: easy bruising, lymphadenopathy Allergic/Immunologic: Denies: urticaria, itchy eyes Exam - HEENT Head exam IM: Present: atraumatic Eye exam IM: Present: EOMI, normal appearance, PERRL ENT exam IM: Present: normal exam - Neurological Neurological exam: Present: CN II-XII intact - Respiratory Respiratory exam IM: Present: CTAB - GI/Abdominal GI/Abdominal exam IM: Present: normal bowel sounds, soft. Absent: tenderness - Extremities Extremities exam IM: Present: full ROM - Skin Skin exam IM: Present: dry, warm - Constitutional Vitals: Temp Pulse Resp BP Pulse Ox 98.4 F 87 16 141/85 98 04/29/18 03:18 04/29/18 03:18 04/29/18 03:18 04/29/18 03:18 04/28/18 23:37 General appearance: age & developmentally appropriate, well-groomed, well- nourished - Musculoskeletal Gait: normal Station: relaxed Strength & Tone: normal for patient - Psychiatric Patient Orientation: Yes Person, Yes Time, Yes Place Level of alertness: Alert Behavior: calm, cooperative Psychomotor activity: Normal Eye Contact: Maintains Eye Contact Mood Description: Anxious Affect description: congruent with mood, full range Speech Volume: Normal Speech pattern: normal rate, normal rhythm, normal tone, fluent, spontaneous Language & Vocabulary: consistent with education Thought Process: Linear, Goal Oriented Thought Content: No Suicidal ideation, No Homicidal ideation, No Overt delusions Perceptual Disturbances: No Auditory hallucinations, No Visual hallucinations Attention Span Ability: Capable of Focused Attention Memory Description: Grossly Intact Patient Reliability: Reliable Historian Fund of knowledge: Yes abstraction ability, Yes average, Yes aware of current events Intelligence Estimate: Average Judgment: Good Insight: Partial Results - Labs Labs: Laboratory Last Values WBC 8.4 K/mcL (4.3-11.1) 04/29/18 00:32 RBC 4.25 M/mcL (3.82-4.97) 04/29/18 00:32 Hgb 13.0 g/dL (11.5-15.4) 04/29/18 00:32 Hct 38.0 % (35.3-44.9) 04/29/18 00:32 MCV 89.4 fL (83.0-100.0) 04/29/18 00:32 MCH 30.6 pg (28.0-33.3) 04/29/18 00:32 MCHC 34.2 g/dL (31.6-35.5) 04/29/18 00:32 RDW 12.0 % (11.5-14.5) 04/29/18 00:32 Plt Count 301 K/mcL (140-400) 04/29/18 00:32 MPV 10.7 fL (9.4-12.4) 04/29/18 00:32 Immature Gran % 0.2 % (0-4) 04/29/18 00:32 Seg Neutrophils % 65.3 % 04/29/18 00:32 Lymphocytes % 27.2 % 04/29/18 00:32 Monocytes % 5.7 % 04/29/18 00:32 Eosinophils % 1.1 % 04/29/18 00:32 Basophils % 0.5 % 04/29/18 00:32 Neutrophils # 5.5 K/mcL (1.6-8.9) 04/29/18 00:32 Lymphocytes # 2.3 K/mcL (0.6-4.6) 04/29/18 00:32 Monocytes # 0.5 K/mcL (0.0-1.3) 04/29/18 00:32 Eosinophils # 0.1 K/mcL (0.0-0.6) 04/29/18 00:32 Basophils # 0.0 K/mcL (0.0-0.2) 04/29/18 00:32 Sodium 139 mEq/L (136-145) 04/29/18 00:32 Potassium 3.8 mEq/L (3.5-5.1) 04/29/18 00: Chloride 109 mEq/L (98-107) H 04/29/18 00:32 Carbon Dioxide 20 mEq/L (23-29) L 04/29/18 00:32 BUN 6 mg/dL (6-20) 04/29/18 00:32 Creatinine 0.68 mg/dL (0.60-1.20) 04/29/18 00:32 Est GFR ( Amer) > 60 (> 60) 04/29/18 00:32 Est GFR (Non-Af Amer) > 60 (> 60) 04/29/18 00: BUN/Creatinine Ratio 9 (6-26) 04/29/18 00:32 Glucose 100 mg/dL (70-105) 04/29/18 00:32 Calculated Osmolality 286 (280-300) 04/29/18 00: Calcium 9.1 mg/dL (8.6-10.3) 04/29/18 00:32 Urine Color Yellow (Yellow) 04/29/18 00:25 Urine Clarity Clear (Clear) 04/29/18 00:25 Urine pH 5.5 pH Units (5.0-8.0) 04/29/18 00:25 Ur Specific [place] 1.015 (1.010-1.025) 04/29/18 00:25 Urine Protein Negative mg/dL (Neg-Trace) 04/29/18 00: Urine Glucose (UA) Normal mg/dL (Normal) 04/29/18 00:25 Urine Ketones Negative mg/dL (Negative) 04/29/18 00:25 Urine Blood Negative (Negative) 04/29/18 00:25 Urine Nitrite Negative (Negative) 04/29/18 00:25 Urine Bilirubin Negative (Negative) 04/29/18 00:25 Urine Urobilinogen Normal mg/dL (Normal) 04/29/18 00:25 Ur Leukocyte Esterase Negative (Negative) 04/29/18 00:25 Urine Test Negative (Negative) 04/29/18 00:25 Salicylates < 2.5 mg/dL (15.0-30.0) L 04/29/18 00:32 Urine Opiates Screen Negative ng/mL (Ugbylb=136) 04/29/18 00:25 Acetaminophen < 10 mcg/mL (10-20) L 04/29/18 00:32 Ur Barbiturates Screen Negative ng/mL (Dbmtzx=044) 04/29/18 00:25 Ur Phencyclidine Scrn Negative ng/mL (Cutoff=25) 04/29/18 00:25 Ur Amphetamines Screen Negative ng/mL (Nghdkf=1929) 04/29/18 00:25 U Benzodiazepines Scrn Negative ng/mL (Zywsoc=809) 04/29/18 00:25 Urine Cocaine Screen Negative ng/mL (Cutoff= 300) 04/29/18 00:25 U Marijuana (THC) Screen Negative ng/mL (Cutoff = 50) 04/29/18 00:25 Ur Drug Screen Interp See Below 04/29/18 00:25 Ethyl Alcohol < 10 mg/dL (Less than 10) 04/29/18 00:32 Diagnosis - Discharge Diagnosis (1) Suicidal ideation Status: Resolved Comments: Patient not in danger to self/others at present. (2) Bipolar disorder, current episode depressed, mild Status: Chronic Comments: continue same rx plan. (3) Social anxiety disorder Status: Chronic Assessment and Plan - Patient/Caregiver Discharge Instructions Activity: resume usual activities as tolerated Diet: regular diet - Follow up Plan Follow up with: Joyce Mccall DO [Primary Care Provider] - Functional capacity at discharge: independent ambulation Overall status at discharge: Stable Disposition: Home, Self-Care Provider Date of admission: 04/29/18 02:08 Primary care physician: Joyce Mccall DO Hospital Course Hospital course: Ms. Paez is a 22 year old female was evaluated today , was admitted for observation , as she superficially cut her self and came to ED as stressed about her parents being sick , she came as she was scared to cut deep but does not want to and wants help. she has h/o bipolar/social anxiety and cutting behaviours. she has been compliant with her medication, she was admitted to in 12/11 for similar reason. she at present is at her baseline not suicidal , depression is much better and she slept well, appetite is good, no psychosis and no si/hi. She has appointment tomorrow with psychiatrist and has support from family and lives with them. Will dc with all her medication she was on Paxil, abilify and fluoxetine. patient upon dc not in danger to self/others. Time spent discussing smoking cessation with patient: 3 to 10 minutes Does patient wish to continue nicotine replacement upon disc: No (patient does not smoke) - Time Spent with Patient Total time spent providing and/or coordinating discharge services: Greater than 30 minutes Procedures - Procedures Procedures: Medication Management, Crisis Stabilization, Supportive Therapy, Group Therapy, Psychoeducational Therapy Quality - Multiple Antipsychotics Patient discharged on 2 or more antipsychotic medications: No
[2018-04-29 12:31] VITALS: BP 132/82
== END 2018-04-29 12:30 | disposition home or self-care (01) | DRG 885 ==
LOC: EMEROOARM 23:34 → 1ANU 04-29 02:08
PROVIDERS: ADMIT Psychiatry & Neurology Psychiatry; ATTEND Psychiatry & Neurology Psychiatry

== ENCOUNTER 2021-06-01 09:45 | Inpatient (IN) ==
[2021-06-01 10:25] LABS: Basophils % 0.3 %; Eosinophils # 0.2 K/mcL (0.0-0.6); Eosinophils % 3.5 %; Hematocrit 38.9 % (35.3-44.9); Hemoglobin 13.5 g/dL (11.5-15.4); Immature Granulocytes % 0.1 % (0-4); Lymphocytes # 1.1 K/mcL (0.6-4.6); Lymphocytes % 16.3 %; Mean Corpuscular HGB Conc 34.7 g/dL (31.6-35.5); Mean Corpuscular Hemoglobin 30.1 pg (28.0-33.3); Mean Corpuscular Volume 86.8 fL (83.0-100.0); Mean Platelet Volume 9.7 fL (9.4-12.4); Monocytes # 0.6 K/mcL (0.0-1.3); Monocytes % 8.7 %; Neutrophils # 4.9 K/mcL (1.6-8.9); Platelet Count 373 K/mcL (140-400); Red Blood Count 4.48 M/mcL (3.82-4.97); Red Cell Distribution Width 11.6 % (11.5-14.5); Segmented Neutrophils % 71.1 %; White Blood Count 6.9 K/mcL (4.3-11.1)
[2021-06-01 10:30] LABS: Clarity,Urine Hazy (Clear); Color,Urine Orange (Yellow)
[2021-06-01 10:35] LABS: RBC,Urine 0-3 per hpf (0-3)
[2021-06-01 10:36] LABS: Bacteria,Urine Moderate per hpf (None-Few); Mucus,Urine Few per lpf (None-Few); Squamous Epithelial Cell,Urine Many per hpf (None-Few)
[2021-06-01 10:45] LABS: Alanine Aminotransferase 56 Units/L (7-52); Albumin 3.8 g/dL (3.5-5.7); Alkaline Phosphatase 140 Units/L (34-104); Aspartate Amino Transferase 60 Units/L (13-39); BUN/Creatinine Ratio 9 (6-26); Bilirubin,Total 5.2 mg/dL (0.3-1.0); Blood Urea Nitrogen 6 mg/dL (6-20); Calcium 9.6 mg/dL (8.6-10.3); Carbon Dioxide 26 mEq/L (23-29); Chloride 101 mEq/L (98-107); Globulin 3.8 g/dL (2.4-3.5); Glucose 85 mg/dL (70-105); Lipase 21 Units/L (11-82); Magnesium 1.9 mg/dL (1.6-2.6); Osmolality,Calculated 279 (280-300); Potassium 3.2 mEq/L (3.5-5.1); Sodium 136 mEq/L (136-145); Total Protein 7.6 g/dL (6.4-8.9); eGFR For African Americans > 60 (> 60); eGFR For Non-African Americans > 60 (> 60)
[2021-06-01] MEDS ORDERED: Naloxone 0.4 MG/ML INJ IVP PRN (11:44)
[2021-06-01] MEDS: Ondansetron 4 MG/2 ML VIAL IVP PRN ×2 (13:34→21:27)
[2021-06-01] MEDS: 0.9 % Sodium Chloride 1,000 ML IVC SCH (13:34)
[2021-06-01] MEDS ORDERED: ETONOGESTREL VG SCH (15:00)
[2021-06-01] MEDS ORDERED: ETHINYL ESTRADIOL VG SCH (15:00)
[2021-06-01] MEDS: Piperacillin/Tazobactam 3.375 GM in 0.9 % Sodium Chloride Mini Bag 100 ML IVPB SCH (15:36)
[2021-06-01] MEDS: PARoxetine 20 MG TABLET PO SCH (17:48)
[2021-06-02] MEDS: Piperacillin/Tazobactam 3.375 GM in 0.9 % Sodium Chloride Mini Bag 100 ML IVPB SCH ×4 (00:19→23:32)
[2021-06-02] MEDS: 0.9 % Sodium Chloride 1,000 ML IVC SCH (01:22)
[2021-06-02 05:51] LABS: Hematocrit 34.5 % (35.3-44.9); Mean Corpuscular HGB Conc 34.2 g/dL (31.6-35.5); Mean Corpuscular Hemoglobin 30.2 pg (28.0-33.3); Mean Corpuscular Volume 88.2 fL (83.0-100.0); Mean Platelet Volume 9.7 fL (9.4-12.4); Platelet Count 305 K/mcL (140-400); Red Blood Count 3.91 M/mcL (3.82-4.97); Red Cell Distribution Width 11.8 % (11.5-14.5); White Blood Count 4.3 K/mcL (4.3-11.1)
[2021-06-02 05:58] LABS: INR 1.1; Prothrombin Time 11.7 Seconds (9.4-12.1)
[2021-06-02 06:00] LABS: Hemoglobin 11.8 g/dL (11.5-15.4)
[2021-06-02 06:08] LABS: Alanine Aminotransferase 89 Units/L (7-52); Albumin/Globulin Ratio 0.9 (1.1-2.2); Alkaline Phosphatase 121 Units/L (34-104); Aspartate Amino Transferase 103 Units/L (13-39); BUN/Creatinine Ratio 11 (6-26); Bilirubin,Total 5.2 mg/dL (0.3-1.0); Blood Urea Nitrogen 6 mg/dL (6-20); Calcium 8.3 mg/dL (8.6-10.3); Carbon Dioxide 21 mEq/L (23-29); Chloride 105 mEq/L (98-107); Chol/HDL Ratio 4.5 (0-4.9); Cholesterol 140 mg/dL (< 200); Globulin 3.4 g/dL (2.4-3.5); Glucose 67 mg/dL (70-105); HDL Cholesterol 31 mg/dL (40-59); LDL Cholesterol,Calculated 88 mg/dL (< 100); Magnesium 1.8 mg/dL (1.6-2.6); Osmolality,Calculated 280 (280-300); Potassium 3.3 mEq/L (3.5-5.1); Sodium 137 mEq/L (136-145); Total Protein 6.4 g/dL (6.4-8.9); Triglycerides 105 mg/dL (< 150); eGFR For African Americans > 60 (> 60); eGFR For Non-African Americans > 60 (> 60)
[2021-06-02] MEDS: PARoxetine 20 MG TABLET PO SCH (16:54)
[2021-06-02] MEDS: Ondansetron 4 MG/2 ML VIAL IVP PRN (23:37)
[2021-06-03 05:30] LABS: Eosinophils # 0.3 K/mcL (0.0-0.6); Eosinophils % 8.7 %; Hematocrit 34.8 % (35.3-44.9); Hemoglobin 11.8 g/dL (11.5-15.4); Immature Granulocytes % 0.3 % (0-4); Lymphocytes # 0.9 K/mcL (0.6-4.6); Lymphocytes % 30.1 %; Mean Corpuscular HGB Conc 33.9 g/dL (31.6-35.5); Mean Corpuscular Hemoglobin 29.7 pg (28.0-33.3); Mean Corpuscular Volume 87.7 fL (83.0-100.0); Mean Platelet Volume 9.4 fL (9.4-12.4); Monocytes # 0.3 K/mcL (0.0-1.3); Neutrophils # 1.5 K/mcL (1.6-8.9); Platelet Count 324 K/mcL (140-400); Red Blood Count 3.97 M/mcL (3.82-4.97); Red Cell Distribution Width 11.8 % (11.5-14.5); Segmented Neutrophils % 48.9 %
[2021-06-03 05:49] LABS: Albumin 3.2 g/dL (3.5-5.7); Bilirubin,Direct 3.7 mg/dL (0.0-0.2); Bilirubin,Indirect 1.2 mg/dL (0.0-1.0); Bilirubin,Total 4.9 mg/dL (0.3-1.0); Globulin 3.2 g/dL (2.4-3.5); Total Protein 6.4 g/dL (6.4-8.9)
[2021-06-03 05:51] LABS: Alanine Aminotransferase 148 Units/L (7-52); Albumin 3.1 g/dL (3.5-5.7); Albumin/Globulin Ratio 0.9 (1.1-2.2); Alkaline Phosphatase 145 Units/L (34-104); Aspartate Amino Transferase 150 Units/L (13-39); BUN/Creatinine Ratio 7 (6-26); Bilirubin,Total 4.9 mg/dL (0.3-1.0); Blood Urea Nitrogen 4 mg/dL (6-20); Calcium 8.5 mg/dL (8.6-10.3); Carbon Dioxide 24 mEq/L (23-29); Chloride 111 mEq/L (98-107); Globulin 3.3 g/dL (2.4-3.5); Glucose 97 mg/dL (70-105); Osmolality,Calculated 281 (280-300); Potassium 3.6 mEq/L (3.5-5.1); Sodium 137 mEq/L (136-145); Total Protein 6.4 g/dL (6.4-8.9); eGFR For African Americans > 60 (> 60); eGFR For Non-African Americans > 60 (> 60)
[2021-06-03] MEDS: Piperacillin/Tazobactam 3.375 GM in 0.9 % Sodium Chloride Mini Bag 100 ML IVPB SCH ×2 (08:14→15:41)
[2021-06-03] MEDS: 0.9 % Sodium Chloride 1,000 ML IVC SCH ×2 (08:55→20:10)
[2021-06-03] MEDS ORDERED: *HR* Propofol 200 MG/20 ML VIAL IVP ONE ×2 (10:31→11:17)
[2021-06-03] MEDS ORDERED: *HR* Midazolam HCl 2 MG/2 ML VIAL ONE (10:31)
[2021-06-03] MEDS ORDERED: *HR* FentaNYL (PF) 100 MCG/2 ML VIAL ONE ×3 (10:31→12:11)
[2021-06-03] MEDS ORDERED: Lidocaine HCL 4 ML Topical Solution (Laryng-O-Jet Kit Sterile Pak) TP ONE (10:34)
[2021-06-03] MEDS: Ringers Solution, Lactated 1,000 ML IVC SCH (10:57)
[2021-06-03] MEDS ORDERED: Lidocaine -MPF 2% 5 ML VIAL ONE ×2 (11:01→12:34)
[2021-06-03] MEDS ORDERED: *HR* Succinylcholine 200 MG/10 ML VIAL IVP ONE (11:01)
[2021-06-03] MEDS ORDERED: Ondansetron 4 MG/2 ML VIAL ONE (11:01)
[2021-06-03] MEDS ORDERED: Indomethacin 50 MG SUPP.RECT RC ONE (12:10)
[2021-06-03] MEDS: PARoxetine 20 MG TABLET PO SCH (16:37)
[2021-06-03] MEDS: Ondansetron 4 MG/2 ML VIAL IVP PRN (20:46)
[2021-06-04] MEDS: Piperacillin/Tazobactam 3.375 GM in 0.9 % Sodium Chloride Mini Bag 100 ML IVPB SCH ×4 (00:10→23:40)
[2021-06-04 01:57] LABS: Basophils % 0.1 %; Eosinophils % 0.1 %; Hematocrit 33.2 % (35.3-44.9); Hemoglobin 11.3 g/dL (11.5-15.4); Immature Granulocytes % 0.3 % (0-4); Lymphocytes % 14.6 %; Mean Corpuscular Hemoglobin 30.1 pg (28.0-33.3); Mean Corpuscular Volume 88.3 fL (83.0-100.0); Mean Platelet Volume 9.6 fL (9.4-12.4); Monocytes # 0.5 K/mcL (0.0-1.3); Neutrophils # 5.2 K/mcL (1.6-8.9); Platelet Count 336 K/mcL (140-400); Red Blood Count 3.76 M/mcL (3.82-4.97); Red Cell Distribution Width 11.9 % (11.5-14.5); Segmented Neutrophils % 76.9 %; White Blood Count 6.8 K/mcL (4.3-11.1)
[2021-06-04 02:17] LABS: Alanine Aminotransferase 191 Units/L (7-52); Alkaline Phosphatase 147 Units/L (34-104); Aspartate Amino Transferase 178 Units/L (13-39); BUN/Creatinine Ratio 9 (6-26); Bilirubin,Total 2.6 mg/dL (0.3-1.0); Blood Urea Nitrogen 4 mg/dL (6-20); Calcium 8.3 mg/dL (8.6-10.3); Carbon Dioxide 20 mEq/L (23-29); Chloride 107 mEq/L (98-107); Globulin 3.1 g/dL (2.4-3.5); Glucose 135 mg/dL (70-105); Osmolality,Calculated 283 (280-300); Potassium 3.7 mEq/L (3.5-5.1); Sodium 137 mEq/L (136-145); Total Protein 6.1 g/dL (6.4-8.9); eGFR For African Americans > 60 (> 60); eGFR For Non-African Americans > 60 (> 60)
[2021-06-04 02:20] LABS: Alanine Aminotransferase 191 Units/L (7-52); Albumin/Globulin Ratio 0.9 (1.1-2.2); Alkaline Phosphatase 147 Units/L (34-104); Aspartate Amino Transferase 178 Units/L (13-39); Bilirubin,Direct 1.8 mg/dL (0.0-0.2); Bilirubin,Indirect 0.8 mg/dL (0.0-1.0); Bilirubin,Total 2.6 mg/dL (0.3-1.0); Globulin 3.2 g/dL (2.4-3.5); Total Protein 6.2 g/dL (6.4-8.9)
[2021-06-04] MEDS: Ondansetron 4 MG/2 ML VIAL IVP PRN (05:31)
[2021-06-04] MEDS ORDERED: *HR* HYDROmorphone 2 MG TABLET PO ONE (06:08)
[2021-06-04] MEDS: Ringers Solution, Lactated 1,000 ML IVC SCH (07:41)
[2021-06-04] MEDS ORDERED: Morphine Sulfate 2 MG/ML SYRINGE IVP ONE (08:00)
[2021-06-04 09:24] LABS: Lipase > 1800 Units/L (11-82)
[2021-06-04] MEDS ORDERED: Acetaminophen IV 1,000 MG/100 ML BAG IVPB ONE (09:29)
[2021-06-04] MEDS ORDERED: Famotidine 20 MG/2 ML VIAL ONE (09:29)
[2021-06-04] MEDS ORDERED: *HR* OxyCODONE Immed Rel 5 MG TABLET PO PRN (09:38)
[2021-06-04] MEDS ORDERED: Pregabalin 75 MG CAPSULE PO ONE (09:38)
[2021-06-04] MEDS ORDERED: *HR* HYDROmorphone 2 MG TABLET PO PRN (09:38)
[2021-06-04] MEDS ORDERED: Promethazine 6.25 MG in Water for inj. (sterile) 20 ML IVPB PRN (09:38)
[2021-06-04] MEDS ORDERED: *HR* Labetalol 20 MG/4 ML SYRINGE IVP PRN (09:38)
[2021-06-04] MEDS ORDERED: *HR* FentaNYL (PF) 100 MCG/2 ML VIAL ONE ×2 (10:08→11:45)
[2021-06-04] MEDS ORDERED: *HR* Propofol 200 MG/20 ML VIAL IVP ONE (10:08)
[2021-06-04] MEDS ORDERED: *HR* Midazolam HCl 2 MG/2 ML VIAL ONE (10:08)
[2021-06-04] MEDS ORDERED: Lidocaine -MPF 2% 5 ML VIAL ONE (10:08)
[2021-06-04] MEDS ORDERED: Ondansetron 4 MG/2 ML VIAL ONE ×2 (10:08→14:00)
[2021-06-04] MEDS ORDERED: Lidocaine HCL 4 ML Topical Solution (Laryng-O-Jet Kit Sterile Pak) TP ONE (10:08)
[2021-06-04] MEDS ORDERED: *HR* Rocuronium Bromide 50 MG/5 ML VIAL ONE ×2 (10:09→12:10)
[2021-06-04] MEDS ORDERED: *HR* HYDROMORPHONE 2 MG/ML VIAL ONE (11:54)
[2021-06-04] MEDS ORDERED: Isovue-300 50ML VIAL ONE (12:14)
[2021-06-04] MEDS ORDERED: Sugammadex Sodium 200 MG/2 ML VIAL IV ONE (12:57)
[2021-06-04] MEDS: *HR* HYDROmorphone (PF) 1 MG/ML SYRINGE IVP PRN ×2 (14:47→14:57)
[2021-06-04] MEDS ORDERED: Ringers Solution, Lactated 1,000 ML IVC SCH (15:15)
[2021-06-04] MEDS ORDERED: ETHINYL ESTRADIOL VG SCH (15:25)
[2021-06-04] MEDS ORDERED: Ondansetron 4 MG/2 ML VIAL IVP PRN (15:25)
[2021-06-04] MEDS ORDERED: ETONOGESTREL VG SCH (15:25)
[2021-06-04] MEDS ORDERED: Naloxone 0.4 MG/ML INJ IVP PRN (15:25)
[2021-06-04] MEDS ORDERED: Ringers Solution, Lactated 500 ML IVC SCH (15:30)
[2021-06-04] MEDS: 0.9 % Sodium Chloride 1,000 ML IVC SCH ×2 (15:50→23:40)
[2021-06-04] MEDS: PARoxetine 20 MG TABLET PO SCH (16:37)
[2021-06-04] MEDS: Acetaminophen IV 1,000 MG/100 ML BAG IVPB SCH ×2 (17:22→23:45)
[2021-06-04] MEDS: Ketorolac 15 MG/ML VIAL IVP SCH ×2 (17:22→23:39)
[2021-06-05 01:26] LABS: Alanine Aminotransferase 233 Units/L (7-52); Alkaline Phosphatase 136 Units/L (34-104); Aspartate Amino Transferase 206 Units/L (13-39); BUN/Creatinine Ratio 7 (6-26); Bilirubin,Total 1.6 mg/dL (0.3-1.0); Blood Urea Nitrogen 3 mg/dL (6-20); Carbon Dioxide 23 mEq/L (23-29); Chloride 105 mEq/L (98-107); Globulin 2.9 g/dL (2.4-3.5); Glucose 100 mg/dL (70-105); Osmolality,Calculated 275 (280-300); Potassium 3.3 mEq/L (3.5-5.1); Sodium 134 mEq/L (136-145); Total Protein 5.9 g/dL (6.4-8.9); eGFR For African Americans > 60 (> 60); eGFR For Non-African Americans > 60 (> 60)
[2021-06-05 01:28] LABS: Albumin/Globulin Ratio 1.1 (1.1-2.2); Bilirubin,Direct 0.9 mg/dL (0.0-0.2); Bilirubin,Indirect 0.7 mg/dL (0.0-1.0); Bilirubin,Total 1.6 mg/dL (0.3-1.0); Globulin 2.8 g/dL (2.4-3.5); Total Protein 5.8 g/dL (6.4-8.9)
[2021-06-05 01:41] LABS: Basophils % 0.1 %; Eosinophils % 0.1 %; Hemoglobin 11.3 g/dL (11.5-15.4); Immature Granulocytes % 0.2 % (0-4); Lymphocytes # 1.1 K/mcL (0.6-4.6); Mean Corpuscular HGB Conc 33.2 g/dL (31.6-35.5); Mean Corpuscular Volume 90.2 fL (83.0-100.0); Mean Platelet Volume 9.6 fL (9.4-12.4); Monocytes # 0.5 K/mcL (0.0-1.3); Monocytes % 6.1 %; Neutrophils # 7.2 K/mcL (1.6-8.9); Platelet Count 310 K/mcL (140-400); Red Blood Count 3.77 M/mcL (3.82-4.97); Red Cell Distribution Width 12.1 % (11.5-14.5); Segmented Neutrophils % 81.5 %; White Blood Count 8.9 K/mcL (4.3-11.1)
[2021-06-05] MEDS: Acetaminophen IV 1,000 MG/100 ML BAG IVPB SCH ×3 (06:00→18:27)
[2021-06-05] MEDS: Ketorolac 15 MG/ML VIAL IVP SCH ×3 (06:00→17:29)
[2021-06-05] MEDS: 0.9 % Sodium Chloride 1,000 ML IVC SCH ×2 (08:18→17:27)
[2021-06-05] MEDS: Piperacillin/Tazobactam 3.375 GM in 0.9 % Sodium Chloride Mini Bag 100 ML IVPB SCH ×2 (08:19→17:27)
[2021-06-05] MEDS: *HR* HYDROmorphone (PF) 1 MG/ML SYRINGE IVP PRN ×2 (14:45→18:37)
[2021-06-05] MEDS: PARoxetine 20 MG TABLET PO SCH (17:29)
[2021-06-05] MEDS ORDERED: *HR* Dextrose 50 % in Water (Syg) 50 ML SYRINGE IVP PRN ×2 (18:23→19:07)
[2021-06-05] MEDS ORDERED: *HR* Dextrose 50 % in Water (Syg) 50 ML SYRINGE ONE (18:36)
[2021-06-05] MEDS ORDERED: Dextrose Gel 15 GM/37.5 ML TUBE PO PRN ×2 (19:07)
[2021-06-05] MEDS ORDERED: D5% in Water 1,000 ML IVC PRN (19:07)
[2021-06-05] MEDS: D5% in 0.9% NACL 1,000 ML IVC SCH (19:56)
[2021-06-06] MEDS: Piperacillin/Tazobactam 3.375 GM in 0.9 % Sodium Chloride Mini Bag 100 ML IVPB SCH ×2 (00:30→08:23)
[2021-06-06] MEDS: Ketorolac 15 MG/ML VIAL IVP SCH ×4 (00:31→18:42)
[2021-06-06] MEDS: Acetaminophen IV 1,000 MG/100 ML BAG IVPB SCH ×4 (00:32→18:42)
[2021-06-06 01:28] LABS: Basophils % 0.2 %; Eosinophils # 0.1 K/mcL (0.0-0.6); Eosinophils % 0.8 %; Hematocrit 33.9 % (35.3-44.9); Hemoglobin 11.6 g/dL (11.5-15.4); Immature Granulocytes % 0.5 % (0-4); Lymphocytes # 1.2 K/mcL (0.6-4.6); Lymphocytes % 10.8 %; Mean Corpuscular HGB Conc 34.2 g/dL (31.6-35.5); Mean Corpuscular Hemoglobin 30.5 pg (28.0-33.3); Mean Corpuscular Volume 89.2 fL (83.0-100.0); Mean Platelet Volume 9.7 fL (9.4-12.4); Monocytes # 0.7 K/mcL (0.0-1.3); Monocytes % 6.5 %; Neutrophils # 8.9 K/mcL (1.6-8.9); Platelet Count 285 K/mcL (140-400); Red Cell Distribution Width 12.2 % (11.5-14.5); Segmented Neutrophils % 81.2 %; White Blood Count 10.9 K/mcL (4.3-11.1)
[2021-06-06 01:44] LABS: Alanine Aminotransferase 230 Units/L (7-52); Albumin 2.8 g/dL (3.5-5.7); Albumin/Globulin Ratio 0.9 (1.1-2.2); Alkaline Phosphatase 115 Units/L (34-104); Aspartate Amino Transferase 132 Units/L (13-39); BUN/Creatinine Ratio 7 (6-26); Bilirubin,Total 1.4 mg/dL (0.3-1.0); Blood Urea Nitrogen 3 mg/dL (6-20); Calcium 8.1 mg/dL (8.6-10.3); Carbon Dioxide 22 mEq/L (23-29); Chloride 107 mEq/L (98-107); Globulin 3.2 g/dL (2.4-3.5); Glucose 98 mg/dL (70-105); Osmolality,Calculated 281 (280-300); Potassium 3.8 mEq/L (3.5-5.1); Sodium 137 mEq/L (136-145); eGFR For African Americans > 60 (> 60); eGFR For Non-African Americans > 60 (> 60)
[2021-06-06] MEDS: D5% in 0.9% NACL 1,000 ML IVC SCH (08:25)
[2021-06-06] MEDS: *HR* HYDROmorphone (PF) 1 MG/ML SYRINGE IVP PRN (08:26)
[2021-06-06] MEDS: PARoxetine 20 MG TABLET PO SCH (18:41)
[2021-06-07] MEDS: Acetaminophen IV 1,000 MG/100 ML BAG IVPB SCH ×3 (00:05→12:02)
[2021-06-07] MEDS: Ketorolac 15 MG/ML VIAL IVP SCH ×3 (00:11→12:01)
[2021-06-07 01:16] LABS: Basophils % 0.2 %; Eosinophils # 0.2 K/mcL (0.0-0.6); Eosinophils % 1.2 %; Hematocrit 31.8 % (35.3-44.9); Hemoglobin 10.8 g/dL (11.5-15.4); Immature Granulocytes % 0.4 % (0-4); Lymphocytes # 1.6 K/mcL (0.6-4.6); Lymphocytes % 12.8 %; Mean Corpuscular Hemoglobin 30.6 pg (28.0-33.3); Mean Corpuscular Volume 90.1 fL (83.0-100.0); Mean Platelet Volume 9.9 fL (9.4-12.4); Monocytes # 0.8 K/mcL (0.0-1.3); Monocytes % 6.7 %; Neutrophils # 9.5 K/mcL (1.6-8.9); Platelet Count 316 K/mcL (140-400); Red Blood Count 3.53 M/mcL (3.82-4.97); Red Cell Distribution Width 12.3 % (11.5-14.5); Segmented Neutrophils % 78.7 %; White Blood Count 12.1 K/mcL (4.3-11.1)
[2021-06-07 01:39] LABS: Alanine Aminotransferase 157 Units/L (7-52); Albumin 2.7 g/dL (3.5-5.7); Albumin/Globulin Ratio 0.9 (1.1-2.2); Alkaline Phosphatase 96 Units/L (34-104); Aspartate Amino Transferase 44 Units/L (13-39); BUN/Creatinine Ratio 11 (6-26); Bilirubin,Total 1.1 mg/dL (0.3-1.0); Blood Urea Nitrogen 4 mg/dL (6-20); Calcium 8.1 mg/dL (8.6-10.3); Carbon Dioxide 24 mEq/L (23-29); Chloride 105 mEq/L (98-107); Globulin 3.1 g/dL (2.4-3.5); Glucose 131 mg/dL (70-105); Osmolality,Calculated 281 (280-300); Potassium 3.5 mEq/L (3.5-5.1); Sodium 136 mEq/L (136-145); Total Protein 5.8 g/dL (6.4-8.9); eGFR For African Americans > 60 (> 60); eGFR For Non-African Americans > 60 (> 60)
[2021-06-07 14:56] VITALS: BP 128/84; PULSE 101; TEMP 97.6; O2SAT 96
== END 2021-06-07 16:34 | disposition home or self-care (01) | DRG 417 ==
LOC: 3BNU 09:45 → EMEROOARM 09:45 → 3BNU 13:09 → SUATTDRO 06-03 14:32
PROVIDERS: ADMIT Internal Medicine; ATTEND Registered Nurse